=== PATIENT | male | born 1990 | race African-American/Black ===

== ENCOUNTER 2016-10-15 15:11 | Emergency (ER) | payer SELFPAY ==
[~2016-10-15] VITALS: Ht 167.6 cm; Wt 69.0 kg
[2016-10-15] MEDS ORDERED: KETOROLAC TROMETHAMINE 60 MG/2 ML VIAL IM ONE (17:30)
[2016-10-15 18:37] VITALS: BP 122/85
== END 2016-10-15 18:52 | disposition home or self-care (01) ==
LOC: EMS 15:11
DX: S40.022A Contusion of left upper arm, initial encounter (principal); S99.912A Unspecified injury of left ankle, initial encounter; M54.5 Low back pain; J45.909 Unspecified asthma, uncomplicated; V49.88XA Car occupant (driver) (passenger) injured in other specified transport accidents, initial encounter; Y93.89 Activity, other specified; Y92.89 Other specified places as the place of occurrence of the external cause; Y99.8 Other external cause status
CPT/HCPCS: 73070; 96372; 99284; J1885